=== PATIENT | male | born 1995 | race Caucasian/White ===

== ENCOUNTER 2023-02-25 20:07 | Emergency (ER) | payer OTHER ==
[~2023-02-25] VITALS: Ht 165.1 cm; Wt 121.6 kg
[2023-02-25 20:48] VITALS: BP 144/91; PULSE 88; RESP 18; TEMP 97.4; O2SAT 99
[2023-02-25] MEDS ORDERED: ATA25 PO (23:47)
[2023-02-26 00:51] VITALS: BP 144/91; PULSE 88; RESP 18; TEMP 97.4; O2SAT 99
== END 2023-02-26 00:51 | disposition home or self-care (01) ==
LOC: EDSEX 20:07 → MED 20:07
DX: R42 Dizziness and giddiness (principal); F41.9 Anxiety disorder, unspecified; Z90.49 Acquired absence of other specified parts of digestive tract; Z98.890 Other specified postprocedural states; Z79.899 Other long term (current) drug therapy; Z88.0 Allergy status to penicillin
CPT/HCPCS: 81002; 99282